=== PATIENT | female | born 2000 ===

== ENCOUNTER 2022-10-29 13:46 | Outpatient (CLI) | payer OTHER | END 2022-10-29 14:25 | disposition home or self-care (01) | LOC: PRENATAL 13:46 | PROVIDERS: ATTEND Obstetrics & Gynecology Maternal & Fetal Medicine | DX: O36.80X0 Pregnancy with inconclusive fetal viability, not applicable or unspecified (principal); Z3A.13 13 weeks gestation of pregnancy ==

== ENCOUNTER 2022-12-22 08:15 | Outpatient (CLI) | payer OTHER | END 2022-12-22 09:15 | disposition home or self-care (01) | LOC: PRENATAL 08:15 | PROVIDERS: ATTEND Obstetrics & Gynecology Maternal & Fetal Medicine | DX: O35.9XX0 Maternal care for (suspected) fetal abnormality and damage, unspecified, not applicable or unspecified (principal); O35.3XX0 Maternal care for (suspected) damage to fetus from viral disease in mother, not applicable or unspecified; Z3A.21 21 weeks gestation of pregnancy ==

== ENCOUNTER 2023-04-06 16:10 | Inpatient (IN) | payer OTHER ==
[~2023-04-06] VITALS: Ht 162.6 cm; Wt 91.2 kg
[2023-04-06] MEDS ORDERED: PRENATAL TABLE1 EAC1 PO (17:10)
[2023-04-06] MEDS ORDERED: PEPCID AC20 MG PO (17:10)
[2023-04-06] MEDS ORDERED: ACETAMINOPHEN500 M1 PO (17:10)
== END 2023-04-11 12:58 | disposition home or self-care (01) | DRG 783 ==
LOC: OBS/DEL 16:10 → LDR 04-07 00:01 → OB/GYN 04-08 13:37
PROVIDERS: ADMIT Obstetrics & Gynecology; ATTEND Obstetrics & Gynecology
PROC: 4A1HXCZ Monitoring of Products of Conception, Cardiac Rate, External Approach (ICD-10-PCS; 2023-04-07)
PROC: 0UB70ZZ Excision of Bilateral Fallopian Tubes, Open Approach (ICD-10-PCS; 2023-04-08)
PROC: 10D00Z1 Extraction of Products of Conception, Low, Open Approach (ICD-10-PCS; principal; 2023-04-08 13:30)
DX: O36.8130 Decreased fetal movements, third trimester, not applicable or unspecified (principal); O60.14X0 Preterm labor third trimester with preterm delivery third trimester, not applicable or unspecified; Z3A.36 36 weeks gestation of pregnancy; Z37.0 Single live birth; Z20.822 Contact with and (suspected) exposure to COVID-19; Z30.2 Encounter for sterilization